=== PATIENT | male | born 1990 | race Caucasian/White ===

== ENCOUNTER 2016-07-04 17:42 | Emergency (ER) | payer OTHER ==
--- NOTE | 2016-07-04 17:46 | UCPHY ---
H & P Patient Type: New HPI/ROS: HPI CHIEF COMPLAINT: Left calf pain HISTORY OF PRESENT ILLNESS: This patient very pleasant 26-year-old male no significant medical history, does not take any daily medications presents urgent care for left posterior calf pain. Patient states he was painting trim the top of the ceiling was on a ladder and somehow he developed pain in the left posterior calf yesterday. Patient tells me that he was pain he was up on a ladder he is unsure exactly how he injured his left calf. He denies falling or direct trauma. He may have pulled a muscle. No history of DVT or PE no chest pain or shortness of breath. No significant swelling. Does tell me 6/10 pain when he goes to walk on it or stretches calf. Especially with dorsiflexion of the foot. Achilles intact. Past Medical History: No medical history Past Surgical History: No surgical history Social History: Denies drug use alcohol tobacco Family History: Noncontributory ROS REVIEW OF SYSTEMS: A comprehensive 10 point review of systems is otherwise negative aside from elements mentioned in the history of present illness. Exam Constitutional triage nursing summary reviewed, vital signs reviewed, awake/ alert. Eyes normal conjunctivae and sclera, EOMI, PERRLA. HENT normal inspection, atraumatic, moist mucus membranes, no epistaxis, neck supple/ no meningismus, no raccoon eyes. Respiratory clear to auscultation bilaterally, normal breath sounds, no respiratory distress, no wheezing. Cardiovascular rate normal, regular rhythm, no murmur, no edema, distal pulses normal. Gastrointestinal soft, non-tender, no rebound, no guarding, normal bowel sounds, no distension, no pulsatile mass. Genitourinary no CVA tenderness. Musculoskeletal left lower extremity: neurovascularly intact, good cap refill , good pulse, good sensation, tender palpation with deep palpation of the left posterior calf. No compartment syndrome, compartment soft, Achilles intact. Pain with dorsiflexion of the foot to left posterior calf. No nodule fell, no obvious deformity of the calf, no muscle ball. no midline vertebral tenderness , full range of motion, no calf swelling, no tenderness of extremities, no meningismus, good pulses, neurovascularly intact. Skin pink, warm, & dry, no rash, skin atraumatic. Neurologic awake, alert and oriented x 3, AAOx3, moves all 4 extremities equally, motor intact, sensory intact, CN II-XII intact, normal cerebellar, normal vision, normal speech. Psychiatric normal mood/affect. Heme/Lymph/Immune no lymphadenopathy. Differential Diagnosis: Includes but is not limited to in a particular, calf strain, musculoskeletal injury, DVT, calf hematoma, gastrocnemius tear Medical Decision Making: Plan for this patient ultrasound left posterior calf make sure there is no DVT. Anti-inflammatory pain meds ibuprofen 800 mg given at urgent care. If no DVT I will recommend he follows up with Orthopedics on outpatient patient as he most likely has a gastrocnemius or calf tear. May need outpatient MRI with Orthopedics. He understands. Will place on crutches. Re-evaluation: Ultrasound of the left lower extremity calf The results of the study are negative for DVT I discussed the results of this study with the radiologist Dr. Fischer 1844: Re-evaluation at this time this patient is resting comfortably no acute distress. Will be placed on crutches, ice pack, anti-inflammatory pain medicine. No evidence of DVT on ultrasound. Most likely calf strain versus musculoskeletal injury versus muscle pull. Recommend close follow-up with Orthopedics. He understands referral given. Return to Urgent Care emergency room if there is any worsening symptoms questions or concerns. Source: Patient - Family History Significant Family History: No pertinent family hx Constitutional: Initial Vital Signs Temperature (C) 36.6 C 07/04/16 17:45 Heart Rate 88 07/04/16 17:45 Respiratory Rate 18 07/04/16 17:45 Blood Pressure 124/66 H 07/04/16 17:45 O2 Sat (%) 97 07/04/16 17:45 O2 Delivery Mode Room Air Allergies/Adverse Reactions: methylphenidate [From Ritalin] Allergy (Verified 07/04/16 17:45) Home Medications: Medication Instructions Recorded Ibuprofen [Motrin (*)] 800 mg PO Q6-8PRN #7 tab 07/04/16 Medical Decision Making - Diagnostics Imaging: Imaging Impressions Extremity Venous Study 07/04/16 17:59 Impression: No deep venous thrombosis left leg. Findings and recommendations discussed with Emergency Department physician, Steven Vivar MD at 18:38 hour, 07/04/2016. Final report concurs with initial preliminary interpretation. - Data Points Medications Given: Discontinued Medications Ibuprofen (Motrin) 800 mg PO EDNOW ONE Stop: 07/04/16 17:56 Last Admin: 07/04/16 17:59 Dose: 800 mg Departure - Departure Disposition: Home, Routine, Self-Care Clinical Impression: Strain of calf muscle Qualifiers: Encounter type: initial encounter Laterality: left Qualified Code(s): S86.812A - Strain of other muscle(s) and tendon(s) at lower leg level, left leg, initial encounter Condition: Good Instructions: Leg Cramps (ED), Muscle Cramp (ED) Additional Instructions: 1. use crutches to help bear weight. 2. Take ibuprofen for pain control. 3.Ice your calf. 4. Please follow up with Orthopedics. Call their for an appointment. Referrals: Deb Rees MD [Primary Care Provider] - As per Instructions Olegario Alicea MD [Medical Doctor] - As per Instructions Prescriptions: Ibuprofen [Motrin (*)] 800 mg PO Q6-8PRN #7 tab - PQRS PQRS Measurement: n/a
[2016-07-04 17:52] VITALS: BP 124/66; PULSE 88; RESP 18; TEMP 98; O2SAT 97
[2016-07-04] MEDS ORDERED: IBUPROFEN 800 MG TAB PO ONE (17:55)
[2016-07-04] MEDS ORDERED: IBUPROFEN 200 MG TAB PO ONE (17:56)
[2016-07-04] MEDS ORDERED: IBUPROFEN 600 MG TAB PO ONE (17:57)
== END 2016-07-04 19:00 | disposition home or self-care (01) ==
LOC: CED 17:42
DX: S86.812A Strain of other muscle(s) and tendon(s) at lower leg level, left leg, initial encounter (principal)
CPT/HCPCS: 93971-PO; 99204-PO; G0463-PO